=== PATIENT | female | born 1975 | race Caucasian/White ===

== ENCOUNTER → 2022-02-13 | Outpatient (CLI) | payer OTHER | LOC: KOH-I 11:25 | DX: S99.911A Unspecified injury of right ankle, initial encounter (principal); S99.921A Unspecified injury of right foot, initial encounter | CPT/HCPCS: 73610; 73630 ==

== ENCOUNTER 2022-03-11 15:13 | Inpatient (IN) | payer OTHER ==
[~2022-03-11] VITALS: Ht 157.5 cm; Wt 58.1 kg
[2022-03-11 16:41] LABS: HEMOGLOBIN 9.6 gm/dl (12.3-15.3); RED BLOOD COUNT 4.21 M/UL (4.00-5.10); WHITE BLOOD COUNT 6.9 K/UL (4.5-11.0)
[2022-03-11 17:07] LABS: BUN/CREATININE RATIO 8 (0-10)
[2022-03-12 04:23] LABS: HEMOGLOBIN 9.9 gm/dl (12.3-15.3); RED BLOOD COUNT 4.33 M/UL (4.00-5.10); WHITE BLOOD COUNT 7.9 K/UL (4.5-11.0)
[2022-03-12 07:03] LABS: BUN/CREATININE RATIO 8 (0-10)
[2022-03-12] MEDS ORDERED: GABAPENTIN300 MG PO (11:03)
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
== END 2022-03-12 13:11 | disposition left against medical advice (07) | DRG 603 ==
LOC: ER1 15:13 → CDU 20:07 → MED SURG 4 03-12 12:13
PROVIDERS: Physician Assistant; ADMIT Internal Medicine
DX: L03.115 Cellulitis of right lower limb (principal); Z20.822 Contact with and (suspected) exposure to COVID-19; F17.210 Nicotine dependence, cigarettes, uncomplicated; Z87.828 Personal history of other (healed) physical injury and trauma; Z98.891 History of uterine scar from previous surgery; Z98.51 Tubal ligation status; Z98.890 Other specified postprocedural states; Z88.2 Allergy status to sulfonamides
CPT/HCPCS: 73630; 73718; 80053; 82550; 82553; 83036; 83735; 85025; 85652; 86140; 87040; 93926; 96365; 96366; 96367; 96375; 99285; J0696; J3370; J7070

== ENCOUNTER 2022-03-23 01:41 | Emergency (ER) | payer OTHER ==
[~2022-03-23] VITALS: Ht 154.9 cm; Wt 59.0 kg
[~2022-03-23 01:41] MED LIST: GABAPENTIN300 MG PO
[2022-03-23 03:29] LABS: HEMOGLOBIN 10.2 gm/dl (12.3-15.3); RED BLOOD COUNT 4.31 M/UL (4.00-5.10); WHITE BLOOD COUNT 8.5 K/UL (4.5-11.0)
[2022-03-23 04:03] LABS: BUN/CREATININE RATIO 13 (0-10)
== END 2022-03-23 17:44 | disposition short-term general hospital (02) ==
LOC: ER1 01:41
PROVIDERS: Family Medicine
DX: I70.261 Atherosclerosis of native arteries of extremities with gangrene, right leg (principal)
CPT/HCPCS: 80053; 85025; 85730; 96374; 99285; J1644; Q9967